=== PATIENT | female | born 1970 | race African-American/Black ===

== ENCOUNTER 2024-10-08 18:42 | Emergency (ER) | payer OTHER ==
[2024-10-08] MEDS: Ketorolac 30 MG/ML SDV IM STA (21:46)
[2024-10-08] MEDS: methylPREDNISolone Sodium Succinate 125 MG/2 ML SDV IVPUSH ONE (21:46)
[2024-10-08] MEDS: Orphenadrine 60 MG/2 ML Inj IM ONE (21:47)
[2024-10-09] MEDS: Diazepam 2 MG Tab PO ONE (05:52)
== END 2024-10-08 22:13 | disposition home or self-care (01) ==
LOC: EDBD 18:42 → MW.ED 18:42
DX: M54.41 Lumbago with sciatica, right side (principal); M54.42 Lumbago with sciatica, left side; I10 Essential (primary) hypertension; E66.9 Obesity, unspecified; Z90.49 Acquired absence of other specified parts of digestive tract; Z79.899 Other long term (current) drug therapy; Z75.8 Other problems related to medical facilities and other health care; Z68.42 Body mass index [BMI] 45.0-49.9, adult
CPT/HCPCS: 96372; 96374; 99283; J1885; J2360; J2919